=== PATIENT | female | born 1945 | race African-American/Black ===

== ENCOUNTER 2019-08-24 18:50 | Emergency (ER) | payer MEDICARE ==
[~2019-08-24] VITALS: Ht 170.2 cm; Wt 93.0 kg
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
[2019-08-24 19:03] VITALS: BP 149/94
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
--- NOTE | 2019-08-24 19:16 | NUR ---
HAND-OFF: Report given to JONATAN Limon.
[2019-08-24] MEDS ORDERED: Tetanus/Diptheria/Pertussis IM ONE (19:30)
[2019-08-24] MEDS ORDERED: HYDROcodone/Acetamin 5/325 tab ORAL ONE (19:30)
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
[2019-08-24] MEDS ORDERED: NORCO 5-325 TA1 EACH ORAL (20:00)
[2019-08-24] MEDS ORDERED: SILVADENE20 GM TP (20:04)
[2019-08-24 20:15] VITALS: BP 149/94
--- NOTE | 2019-08-24 20:15 | NUR ---
ED Nurse Note: Patient cleared for discharge by Hermes. Patient verbalized understanding of discharge instructions. Patient is ambulatory with steady gait and A&Ox4. Patient plans to call a family member to pick her up. Patient departed with all belongings.
[2019-08-24] MEDS ORDERED: DILANTIN100 MG ORAL (20:16)
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
== END 2019-08-24 22:00 | disposition home or self-care (01) ==
LOC: EDBD 18:50 → EMR 21:20
DX: T25.221A Burn of second degree of right foot, initial encounter (principal); T31.0 Burns involving less than 10% of body surface; Z23 Encounter for immunization; X10.2XXA Contact with fats and cooking oils, initial encounter; Y93.G3 Activity, cooking and baking; Y92.009 Unspecified place in unspecified non-institutional (private) residence as the place of occurrence of the external cause
CPT/HCPCS: 90471; 90715; 99282